=== PATIENT | male | born 1980 | race Hispanic/Latino ===

== ENCOUNTER → 2019-04-29 08:42 | Outpatient (CLI) | payer OTHER, SELFPAY ==
--- NOTE | 2019-04-29 | DI.MRI.S_ITS ---
PROCEDURE: MR HEAD/BRAIN WO/W CON INDICATIONS: Benign neoplasm of cerebral meninges TECHNIQUE: Noncontrast axial T1 spin echo, axial T2 fast spin echo, sagittal and axial FLAIR, coronal T2 fast spin echo, axial gradient echo, axial diffusion and ADC through the brain. After the administration of contrast, axial and coronal 3D VIBE or T1 spin echo with fat saturation through the brain. COMPARISON: No prior studies are available for comparison at the time of this dictation. FINDINGS: Image quality: Excellent. CSF Spaces: Basal cisterns are patent. No extra-axial fluid collections. Ventricles are normal in size and shape. Brain: No midline shift. No intracranial bleeds or masses. No abnormal intracranial enhancement. The brainstem appears normal. Diffusion-weighted images demonstrate no acute ischemic insults. No chronic ischemic insults. Normal intravascular flow voids are present. Skull and face: Craniotomy changes are seen in the right. Calvarial marrow is normal in signal. Orbits appear normal. Sinuses: Sinuses and mastoids appear clear. IMPRESSION: No masses or abnormal enhancement can be seen. Prior right craniotomy changes. Dictated by: Primitivo Milian M.D. on 04/29/2019 at 9:24 Approved by: Primitivo Milian M.D. on 04/29/2019 at 9:26
== END ==
DX: D32.0 Benign neoplasm of cerebral meninges (principal)
CPT/HCPCS: 70553

== ENCOUNTER 2020-03-18 14:30 | Outpatient (RCR) | payer OTHER, SELFPAY ==
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
== END 2020-09-25 08:48 | disposition home or self-care (01) ==
LOC: SP 14:30
DX: S06.9X0A Unspecified intracranial injury without loss of consciousness, initial encounter (principal)
CPT/HCPCS: 92507; 92523

== ENCOUNTER 2021-07-13 14:30 | Outpatient (RCR) | payer OTHER, SELFPAY ==
--- NOTE | 2021-03-17 17:31 | ST.OPIE ---
Visit Care Team Role Provider Type Yifan Knight Attending Provider Non-Staff Primary Care Provider Referring Provider Specialty: Medical Address: [address] [place] [address], [id number] Email: Speech-Language Pathology Initial Evaluation GENERAL SERVICE TECHNICIAN Adult Cognitive Linguistic Eval Start: 03/17/21 12:51 Freq: Status: Active Protocol: Document 03/17/21 12:52 EUGENIA (Rec: 03/17/21 13:26 EUGENIA [email or web address]) Adult Cognitive Linguistic Evaluation Session Time Visit Start Time 12:30 Visit Stop Time 13:25 Total Visit Minutes 55 Visit Information Visit Number Initial Evaluation Plan of Care Dates 03/17/21 - 06/17/21 Insurance Information Referral Referring Provider Dr. Yifan Knight Reason for Referral Unspecified intracranial injury without loss of consciousness Setting Assessment Location Outpatient Care Visit Type Note Type Initial evaluation Next Note Type Next Note Type Treatment Note Patient Information Identification Type Name,ID Card Medical History The pt is a 40-yr-old male familiar to this GENERAL SERVICE TECHNICIAN from previous outpatient speech therapy (07/30 - 03/30) targeting memory, attention, and problem solving skills. 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 He reported that new responsibilities are more demanding, both in regard to workload and time constraints, and that short term and working memory dificits interfere with his ability to complete tasks effectively and timely. 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 Assessment Oral Motor Examination Completed No Informal Assessment Receptive Language Normal Yes Expressive Language Normal Yes Pragmatic Language Normal Yes Speech Normal Yes Cognition Normal No: Mild Impairment Cognitive Impairment(s) Attention,Short-term memory Formal Assessment Standardized Test/Screener Type Cognitive Linguistic Quick Test (CLQT) Administration Complete Results Pt scored WNL on all scales of Attention, Memory, Executive Functions, Language, and Visualspatial Skills, as well as Clock Drawing task. Pt completed all tasks in a timely manner with exception of generative naming of words beginning with letter M (6 words in 60 sec) and design generation (7 of 13 possible designs; 2 errors made, 1 self -corrected). In story task, the pt recalled 11/18 details and answered 5/6 related questions (memory recognition) . Findings/Results Language Function Within normal limits Cognitive Function Mildly impaired Findings The pt presents with mild cognitive communication deficits primarily in areas of attention, executive function , and working/short-term memory which impact his ability to manage high level responsibilities in his job. Expressive and receptive language are WNL, as are pragmatic language skills. The pt is building his career and family. He has been promoted to a work position with significantly higher demands, which exceed the ability to use tools and strategies accomplished in previous therapy. Skilled intervention is medically necessary to meet these demands to maintain employment and family life. Cognitive Communication Deficits Self-awareness of Cognitive- Predictive awareness (able to Communication Deficits predict problem; impact of impairments) Impact on Functioning Activity Limits/Particip.Rest. Mild: General Tasks and Demands Interpersonal Interactions Mod: Employment Prognosis Prognosis Good Based on Cognitive status,Family support,Duration of symptoms/ severity,Time since onset, Other (comment) Comment Progress made in previous therapy course. Plan of Care Speech-Language Treatment Yes Frequency 1x/wk Duration 12 wks Patient/Caregiver Education Described results of evaluation,Patient expressed understanding of evaluation, Patient expressed agreement with goals and treatment plans Short Term Goals 1. With GENERAL SERVICE TECHNICIAN collaboration as needed, the pt will develop external memory tools to increase his ability to recall functional information necessary to fulfill work responsibilities. 2. With GENERAL SERVICE TECHNICIAN collaboration as needed, the pt will develop tools/strategies to track information related to work projects in order to improve executive functions necessary to fulfill work responsibilities. 3. The pt will complete alternating and dual attention tasks with 80% accuracy to improve ability to attend to multiple stimuli to fulfill work and personal/family responsibilities. Snf Goals 1. The pt will use external memory tools independently in 80% of opportunities to meet work and personal/home responsibilities and improve quality of life. 2. The pt will use executive function tools/strategies in 80% of opportunities to meet work and personal/home responsibilities and improve quality of life. 3. The pt will demonstrate attention skills WFL to of opportunities to meet work and personal/home responsibilities and improve quality of life.
--- NOTE | 2021-03-30 16:34 | ST.OPTN ---
Visit Care Team Role Provider Type Yifan Knight Attending Provider Non-Staff Primary Care Provider Referring Provider Address: [address] [place] [address], [id number] WASHER ENGINEER HELPER Treatment Note WASHER ENGINEER HELPER Clinical Instructor Line Start: 03/30/21 12:26 Freq: Status: Active Protocol: Document 03/30/21 12:26 EUGENIA (Rec: 03/30/21 12:26 EUGENIA [email or web address]) Clinical Instructor Signature Clinical Instructor Clinical Instructor Yes WASHER ENGINEER HELPER Treatment Note Start: 03/17/21 12:51 Freq: Status: Active Protocol: Document 03/30/21 09:36 EB (Rec: 03/30/21 09:38 EB [email or web address]) Speech Pathology Treatment Note Session Time Visit Start Time 08:30 Visit Stop Time 09:20 Total Visit Minutes 50 Visit Information Visit Number 1 Plan of Care Dates 03/17/21 - 06/17/21 Insurance Information Setting Treatment Setting Outpatient Care Visit Type Note Type Treatment Note Next Note Type Next Note Type Treatment Note General Information General Information The pt is a 40-yr-old male familiar to this WASHER ENGINEER HELPER from previous outpatient speech therapy (07/30 - 03/30) targeting memory, attention, and problem solving skills. He made excellent progress using memory and organizational strategies to complete work and home responsibilities. 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 The pt presents with mild cognitive communication deficits primarily in areas of attention, executive function, and working/short-term memory which impact his ability to manage high level responsibilities in his job. Subjective Identification Type Name Others Present Student Observations/Patient Presentation Pt arrived on time and unaccompanied. Session conducted and note written by student WASHER ENGINEER HELPER Cristin Morton. Chief Complaint(s) Language,Cognitive Patient Knowledge/Awareness of WASHER ENGINEER HELPER Role Excellent in Treatment Parent/Caretake Knowledge/Awareness of Excellent WASHER ENGINEER HELPER Role in Treatment Patient/Caregiver Compliance with Home Excellent Exercise Program Objective Short Term Goals 1. With WASHER ENGINEER HELPER collaboration as needed, the pt will develop external memory tools to increase his ability to recall functional information necessary to fulfill work responsibilities. 2. With WASHER ENGINEER HELPER collaboration as needed, the pt will develop tools/strategies to track information related to work projects in order to improve executive functions necessary to fulfill work responsibilities. 3. The pt will complete alternating and dual attention tasks with 80% accuracy to improve ability to attend to multiple stimuli to fulfill work and personal/family responsibilities. Referral And Information Aide Goals 1. The pt will use external memory tools independently in 80% of opportunities to meet work and personal/home responsibilities and improve quality of life. 2. The pt will use executive function tools/strategies in 80% of opportunities to meet work and personal/home responsibilities and improve quality of life. 3. The pt will demonstrate attention skills WFL to of opportunities to meet work and personal/home responsibilities and improve quality of life. Treatment Activities Pt brought notebook containing list of duties and collaborated with WASHER ENGINEER HELPER to determine what strategies/ exercises will be helpful in improving memory and attention . Strategies discussed include : intentional attention (e.g. repeating instructions out-loud ), delegating tasks at work, streamline communication, and utilizing memory strategies such as grouping information and mnemonics. Provided education and skilled feedback RE the different types of memory/attention and what strategies are beneficial for improving these functions. Pt expressed understanding and stated that he will begin implementing discussed strategies (creating note taking template, using different colored pen to prioritize tasks, etc.) and will report next week what is/ isn't beneficial. Next session will begin cognitive- linguistic exercises to directly target improving short-term memory and attention. Assessment Patient Response to Treatment Excellent Rehab Potential Excellent Impairments Identified Attention,Memory - Short Term, Memory - Working Assessment of Improvement Pt was responsive to all education and training today, verbalizing understanding and writing down HEP to implement over the next week. Reviewed with Patient Goals,Home Exercise Program Patient/Caregiver Understanding Excellent Plan Amount of Therapy Recommended 3 Months Frequency of Treatment Once a Week Length of Session 45 Minutes Therapeutic Contents Client Education,Cognitive- Linguistic Training,Home Exercise Program Provided Patient/Caregiver Instruction Home Exercise Program,Plan of Care,Questions/Concerns Therapy Recommendations Continue with Current Program
--- NOTE | 2021-04-07 16:35 | ST.OPTN ---
Visit Care Team Role Provider Type Yifan Knight Attending Provider Non-Staff Primary Care Provider Referring Provider Address: [address] [place] [address], [id number] SENIOR PROPERTY ACCOUNTANT Treatment Note SENIOR PROPERTY ACCOUNTANT Clinical Instructor Line Start: 03/30/21 12:26 Freq: Status: Active Protocol: Document 04/07/21 15:54 EUGENIA (Rec: 04/07/21 15:54 EUGENIA [email or web address]) Clinical Instructor Signature Clinical Instructor Clinical Instructor Yes SENIOR PROPERTY ACCOUNTANT Treatment Note Start: 03/17/21 12:51 Freq: Status: Active Protocol: Document 04/06/21 09:40 EB (Rec: 04/06/21 09:54 EB [email or web address]) Speech Pathology Treatment Note Session Time Visit Start Time 08:30 Visit Stop Time 09:20 Total Visit Minutes 50 Visit Information Visit Number 2 Plan of Care Dates 03/17/21 - 06/17/21 Insurance Information Setting Treatment Setting Outpatient Care Visit Type Note Type Treatment Note Next Note Type Next Note Type Treatment Note General Information General Information The pt is a 40-yr-old male familiar to this SENIOR PROPERTY ACCOUNTANT from previous outpatient speech therapy (07/30 - 03/30) targeting memory, attention, and problem solving skills. He made excellent progress using memory and organizational strategies to complete work and home responsibilities. 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 The pt presents with mild cognitive communication deficits primarily in areas of attention, executive function, and working/short-term memory which impact his ability to manage high level responsibilities in his job. Subjective Identification Type Name Others Present Student Observations/Patient Presentation Pt arrived on time and unaccompanied. Session conducted and note written by student SENIOR PROPERTY ACCOUNTANT Cristin Morton. Chief Complaint(s) Language,Cognitive Patient Knowledge/Awareness of SENIOR PROPERTY ACCOUNTANT Role Excellent in Treatment Parent/Caretake Knowledge/Awareness of Excellent SENIOR PROPERTY ACCOUNTANT Role in Treatment Patient/Caregiver Compliance with Home Excellent Exercise Program Objective Short Term Goals 1. With SENIOR PROPERTY ACCOUNTANT collaboration as needed, the pt will develop external memory tools to increase his ability to recall functional information necessary to fulfill work responsibilities. 2. With SENIOR PROPERTY ACCOUNTANT collaboration as needed, the pt will develop tools/strategies to track information related to work projects in order to improve executive functions necessary to fulfill work responsibilities. 3. The pt will complete alternating and dual attention tasks with 80% accuracy to improve ability to attend to multiple stimuli to fulfill work and personal/family responsibilities. Leadite Heater Goals 1. The pt will use external memory tools independently in 80% of opportunities to meet work and personal/home responsibilities and improve quality of life. 2. The pt will use executive function tools/strategies in 80% of opportunities to meet work and personal/home responsibilities and improve quality of life. 3. The pt will demonstrate attention skills WFL to of opportunities to meet work and personal/home responsibilities and improve quality of life. Treatment Activities Pt reported that he has implemented several external memory tools/strategies that were discussed last week ( delegating tasks, streamlining communication, using a note template) and stated that these strategies have been very helpful in order for him to decrease stress and fulfill work responsibilities this past week. Provided skilled feedback RE options for further simplifying and implementing strategies. Pt was receptive to feedback and agreed to continue with HEP. Provided education RE memory strategies and targeted memorizing and recalling 5 objects; with strategies (self tactile cue, creating a story with the objects, repeating it out loud) pt recalled objects 85% accuracy. Next session, pt will bring in task list from work to specifically target using internal memory strategies with functional tasks. Assessment Patient Response to Treatment Excellent Rehab Potential Excellent Impairments Identified Attention,Memory - Short Term, Memory - Working Assessment of Improvement Pt demonstrated excellent awareness and insight by stating it is up to him to utilize available resources and set boundaries at work. Reviewed with Patient Goals,Home Exercise Program Patient/Caregiver Understanding Excellent Plan Amount of Therapy Recommended 3 Months Frequency of Treatment Once a Week Length of Session 45 Minutes Therapeutic Contents Client Education,Cognitive- Linguistic Training,Home Exercise Program Provided Patient/Caregiver Instruction Home Exercise Program,Plan of Care,Questions/Concerns Therapy Recommendations Continue with Current Program
--- NOTE | 2021-04-13 17:05 | ST.OPTN ---
Visit Care Team Role Provider Type Yifan Knight Attending Provider Non-Staff Primary Care Provider Referring Provider Address: [address] [place] [address], [id number] SAFETY INTERN Treatment Note SAFETY INTERN Clinical Instructor Line Start: 03/30/21 12:26 Freq: Status: Active Protocol: Document 04/13/21 17:00 EUGENIA (Rec: 04/13/21 17:00 EUGENIA [email or web address]) Clinical Instructor Signature Clinical Instructor Clinical Instructor Yes SAFETY INTERN Treatment Note Start: 03/17/21 12:51 Freq: Status: Active Protocol: Document 04/13/21 16:28 EB (Rec: 04/13/21 16:42 EB [id number]) Speech Pathology Treatment Note Session Time Visit Start Time 14:30 Visit Stop Time 15:15 Total Visit Minutes 45 Visit Information Visit Number 3 Plan of Care Dates 03/17/21 - 06/17/21 Insurance Information Setting Treatment Setting Outpatient Care Visit Type Note Type Treatment Note Next Note Type Next Note Type Treatment Note General Information General Information The pt is a 40-yr-old male familiar to this SAFETY INTERN from previous outpatient speech therapy (07/30 - 03/30) targeting memory, attention, and problem solving skills. He made excellent progress using memory and organizational strategies to complete work and home responsibilities. 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 The pt presents with mild cognitive communication deficits primarily in areas of attention, executive function, and working/short-term memory which impact his ability to manage high level responsibilities in his job. Subjective Identification Type Name Others Present Additional Therapist Observations/Patient Presentation Pt arrived on time and unaccompanied without his task list. Session conducted and note written by student SAFETY INTERN Cristin Morton. Chief Complaint(s) Language,Cognitive Patient Knowledge/Awareness of SAFETY INTERN Role Excellent in Treatment Parent/Caretake Knowledge/Awareness of Excellent SAFETY INTERN Role in Treatment Patient/Caregiver Compliance with Home Excellent Exercise Program Objective Short Term Goals 1. With SAFETY INTERN collaboration as needed, the pt will develop external memory tools to increase his ability to recall functional information necessary to fulfill work responsibilities. 2. With SAFETY INTERN collaboration as needed, the pt will develop tools/strategies to track information related to work projects in order to improve executive functions necessary to fulfill work responsibilities. 3. The pt will complete alternating and dual attention tasks with 80% accuracy to improve ability to attend to multiple stimuli to fulfill work and personal/family responsibilities. Animal Trainer Supervisor Goals 1. The pt will use external memory tools independently in 80% of opportunities to meet work and personal/home responsibilities and improve quality of life. 2. The pt will use executive function tools/strategies in 80% of opportunities to meet work and personal/home responsibilities and improve quality of life. 3. The pt will demonstrate attention skills WFL to of opportunities to meet work and personal/home responsibilities and improve quality of life. Treatment Activities Pt reported that he has continued to have success implementing external memory tools/strategies. Targeted recalling 5 different related objects: at the beginning of session, pt was averaging 80% accuracy with min prompts. After given skilled feedback, prompts were gradually faded and at the end of the session pt independently recalled 5 different objects from 5 different lists (total of 25 words). Assessment Patient Response to Treatment Excellent Rehab Potential Excellent Impairments Identified Attention,Memory - Short Term, Memory - Working Assessment of Improvement Pt was responsive to education and training. Pt gradually improved as the session progressed, which indicates that targeted strategies are helpful to the pt. Reviewed with Patient Goals,Home Exercise Program Patient/Caregiver Understanding Excellent Plan Amount of Therapy Recommended 3 Months Frequency of Treatment Once a Week Length of Session 45 Minutes Therapeutic Contents Client Education,Cognitive- Linguistic Training,Home Exercise Program Provided Patient/Caregiver Instruction Home Exercise Program,Plan of Care,Questions/Concerns Therapy Recommendations Continue with Current Program
--- NOTE | 2021-04-20 16:35 | ST.OPTN ---
Visit Care Team Role Provider Type Yifan Knight Attending Provider Non-Staff Primary Care Provider Referring Provider Address: [address] [place] [address], [id number] PLASTERER FOREMAN Treatment Note PLASTERER FOREMAN Clinical Instructor Line Start: 03/30/21 12:26 Freq: Status: Active Protocol: Document 04/13/21 17:00 EUGENIA (Rec: 04/13/21 17:00 EUGENIA [email or web address]) Clinical Instructor Signature Clinical Instructor Clinical Instructor Yes PLASTERER FOREMAN Treatment Note Start: 03/17/21 12:51 Freq: Status: Active Protocol: Document 04/20/21 15:23 EUGENIA (Rec: 04/20/21 15:29 EUGENIA [email or web address]) Speech Pathology Treatment Note Session Time Visit Start Time 14:30 Visit Stop Time 15:15 Total Visit Minutes 45 Visit Information Visit Number 4 Plan of Care Dates 03/17/21 - 06/17/21 Insurance Information Setting Treatment Setting Outpatient Care Visit Type Note Type Treatment Note Next Note Type Next Note Type Treatment Note General Information General Information The pt is a 40-yr-old male familiar to this PLASTERER FOREMAN from previous outpatient speech therapy (07/30 - 03/30) targeting memory, attention, and problem solving skills. He made excellent progress using memory and organizational strategies to complete work and home responsibilities. 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 The pt presents with mild cognitive communication deficits primarily in areas of attention, executive function, and working/short-term memory which impact his ability to manage high level responsibilities in his job. Subjective Identification Type Name Others Present Additional Therapist Observations/Patient Presentation Pt arrived on time. No new complaints. Reported he has been able to delegate more work to others, which has allowed him more time and energy to complete his own mandatory work, also has reduced his stress. With this, the pt was also able to recall grocery items without dependence on list. Chief Complaint(s) Language,Cognitive Patient Knowledge/Awareness of PLASTERER FOREMAN Role Excellent in Treatment Parent/Caretake Knowledge/Awareness of Excellent PLASTERER FOREMAN Role in Treatment Patient/Caregiver Compliance with Home Excellent Exercise Program Objective Short Term Goals 1. With PLASTERER FOREMAN collaboration as needed, the pt will develop external memory tools to increase his ability to recall functional information necessary to fulfill work responsibilities. 2. With PLASTERER FOREMAN collaboration as needed, the pt will develop tools/strategies to track information related to work projects in order to improve executive functions necessary to fulfill work responsibilities. 3. The pt will complete alternating and dual attention tasks with 80% accuracy to improve ability to attend to multiple stimuli to fulfill work and personal/family responsibilities. Correction Goals 1. The pt will use external memory tools independently in 80% of opportunities to meet work and personal/home responsibilities and improve quality of life. 2. The pt will use executive function tools/strategies in 80% of opportunities to meet work and personal/home responsibilities and improve quality of life. 3. The pt will demonstrate attention skills WFL to of opportunities to meet work and personal/home responsibilities and improve quality of life. Treatment Activities Skilled feedback provided to pt RE potential effects of stress on memory, including reduced stress promoting better recall. Pt independently recalled 25/ 30 items train at last week's session; additional 5 items recalled with verbal prompts. Continued training pt in internal memory strategies including acronyms, chaining, visualization, associations and repetition. Given lists of 5 varied words and using strategies, the pt recalled 15 /15 items across 3 lists independently after a 10-min delay during which he performed mental flexibility task of alphbetizing Fo4 words (50%, then 100% using added written support across 2 trials). Assessment Patient Response to Treatment Excellent Rehab Potential Excellent Impairments Identified Attention,Memory - Short Term, Memory - Working Assessment of Improvement Pt was responsive to education and training. Excellent recall of word lists from last week. He is demonstrating good ability to make associations and use strategies in both therapeutic and functional tasks. Reviewed with Patient Goals,Progress Being Made,Home Exercise Program Patient/Caregiver Understanding Excellent Plan Amount of Therapy Recommended 3 Months Frequency of Treatment Once a Week Length of Session 45 Minutes Therapeutic Contents Client Education,Cognitive- Linguistic Training,Home Exercise Program Provided Patient/Caregiver Instruction Home Exercise Program,Plan of Care,Questions/Concerns Therapy Recommendations Continue with Current Program
--- NOTE | 2021-05-05 17:40 | ST.OPTN ---
Visit Care Team Role Provider Type Yifan Knight Attending Provider Non-Staff Primary Care Provider Referring Provider Address: [address] [place] [address], [id number] COLOR CHECKER ROVING OR YARN Treatment Note COLOR CHECKER ROVING OR YARN Clinical Instructor Line Start: 03/30/21 12:26 Freq: Status: Active Protocol: Document 04/13/21 17:00 EUGENIA (Rec: 04/13/21 17:00 EUGENIA [email or web address]) Clinical Instructor Signature Clinical Instructor Clinical Instructor Yes COLOR CHECKER ROVING OR YARN Treatment Note Start: 03/17/21 12:51 Freq: Status: Active Protocol: Document 05/04/21 18:15 EUGENIA (Rec: 05/04/21 18:15 EUGENIA [email or web address]) Speech Pathology Treatment Note Session Time Visit Start Time 14:30 Visit Stop Time 15:15 Total Visit Minutes 45 Visit Information Visit Number 5 Plan of Care Dates 03/17/21 - 06/17/21 Insurance Information Setting Treatment Setting Outpatient Care Visit Type Note Type Treatment Note Next Note Type Next Note Type Treatment Note General Information General Information The pt is a 40-yr-old male familiar to this COLOR CHECKER ROVING OR YARN from previous outpatient speech therapy (07/30 - 03/30) targeting memory, attention, and problem solving skills. He made excellent progress using memory and organizational strategies to complete work and home responsibilities. 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 The pt presents with mild cognitive communication deficits primarily in areas of attention, executive function, and working/short-term memory which impact his ability to manage high level responsibilities in his job. Subjective Identification Type Name Others Present Additional Therapist Observations/Patient Presentation Pt arrived on time. No new complaints. Reported he has been able to delegate more work to others, which has allowed him more time and energy to complete his own mandatory work, also has reduced his stress. With this, the pt was also able to recall grocery items without dependence on list. Chief Complaint(s) Language,Cognitive Patient Knowledge/Awareness of COLOR CHECKER ROVING OR YARN Role Excellent in Treatment Parent/Caretake Knowledge/Awareness of Excellent COLOR CHECKER ROVING OR YARN Role in Treatment Patient/Caregiver Compliance with Home Excellent Exercise Program Objective Short Term Goals 1. With COLOR CHECKER ROVING OR YARN collaboration as needed, the pt will develop external memory tools to increase his ability to recall functional information necessary to fulfill work responsibilities. 2. With COLOR CHECKER ROVING OR YARN collaboration as needed, the pt will develop tools/strategies to track information related to work projects in order to improve executive functions necessary to fulfill work responsibilities. 3. The pt will complete alternating and dual attention tasks with 80% accuracy to improve ability to attend to multiple stimuli to fulfill work and personal/family responsibilities. Halfway Goals 1. The pt will use external memory tools independently in 80% of opportunities to meet work and personal/home responsibilities and improve quality of life. 2. The pt will use executive function tools/strategies in 80% of opportunities to meet work and personal/home responsibilities and improve quality of life. 3. The pt will demonstrate attention skills WFL to of opportunities to meet work and personal/home responsibilities and improve quality of life. Treatment Activities Pt completed selective and divided attention tasks using conversation task In the [employer] sydnee with and without dual physical task. Selective attn, 67% acc; skilled feedback provided and strategies developed. Acc remained at 67% with use of strategies. Divided att: 75% acc. Assessment Patient Response to Treatment Excellent Rehab Potential Excellent Impairments Identified Attention,Memory - Short Term, Memory - Working Progress Towards Goals Excellent Progress,Good Progress Assessment of Overall Progress Improving Assessment of Improvement Pt is making excellent progress toward goals. Demonstrated stimulability to selective and divided attn tasks. Reviewed with Patient Goals,Progress Being Made,Home Exercise Program Patient/Caregiver Understanding Excellent Plan Amount of Therapy Recommended 3 Months Frequency of Treatment Once a Week Length of Session 45 Minutes Therapeutic Contents Client Education,Cognitive- Linguistic Training,Home Exercise Program Provided Patient/Caregiver Instruction Home Exercise Program,Plan of Care,Questions/Concerns Therapy Recommendations Continue with Current Program
--- NOTE | 2021-05-18 16:25 | ST.OPTN ---
Visit Care Team Role Provider Type Yifan Knight Attending Provider Non-Staff Primary Care Provider Referring Provider Address: [address] [place] [address], [id number] INNER LAYER SCRUBBER TENDER Treatment Note INNER LAYER SCRUBBER TENDER Clinical Instructor Line Start: 03/30/21 12:26 Freq: Status: Active Protocol: Document 04/13/21 17:00 EUGENIA (Rec: 04/13/21 17:00 EUGENIA [email or web address]) Clinical Instructor Signature Clinical Instructor Clinical Instructor Yes INNER LAYER SCRUBBER TENDER Treatment Note Start: 03/17/21 12:51 Freq: Status: Active Protocol: Document 05/18/21 15:24 EUGNEIA (Rec: 05/18/21 15:33 EUGENIA [email or web address]) Speech Pathology Treatment Note Session Time Visit Start Time 14:30 Visit Stop Time 15:15 Total Visit Minutes 45 Visit Information Visit Number 6 Plan of Care Dates 03/17/21 - 06/17/21 Insurance Information Setting Treatment Setting Outpatient Care Visit Type Note Type Treatment Note Next Note Type Next Note Type Treatment Note General Information General Information The pt is a 40-yr-old male familiar to this INNER LAYER SCRUBBER TENDER from previous outpatient speech therapy (07/30 - 03/30) targeting memory, attention, and problem solving skills. He made excellent progress using memory and organizational strategies to complete work and home responsibilities. 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 The pt presents with mild cognitive communication deficits primarily in areas of attention, executive function, and working/short-term memory which impact his ability to manage high level responsibilities in his job. Subjective Identification Type Name Others Present Additional Therapist Observations/Patient Presentation Pt arrived on time. No new complaints. Memory strategies have been effective with recalling lists. Pt reported losing a few objects recently when he did not adhere to the routine of putting objects in their designated places. When following routine, he is not misplacing things. Pt has an inspection happening next week with his job. Reported use of checklist/flow sheet has been helpful in preparing and he will use it during the inspection. Chief Complaint(s) Language,Cognitive Patient Knowledge/Awareness of INNER LAYER SCRUBBER TENDER Role Excellent in Treatment Parent/Caretake Knowledge/Awareness of Excellent INNER LAYER SCRUBBER TENDER Role in Treatment Patient/Caregiver Compliance with Home Excellent Exercise Program Objective Short Term Goals 1. With INNER LAYER SCRUBBER TENDER collaboration as needed, the pt will develop external memory tools to increase his ability to recall functional information necessary to fulfill work responsibilities. 2. With INNER LAYER SCRUBBER TENDER collaboration as needed, the pt will develop tools/strategies to track information related to work projects in order to improve executive functions necessary to fulfill work responsibilities. 3. The pt will complete alternating and dual attention tasks with 80% accuracy to improve ability to attend to multiple stimuli to fulfill work and personal/family responsibilities. Senior Behavioral Scientist Goals 1. The pt will use external memory tools independently in 80% of opportunities to meet work and personal/home responsibilities and improve quality of life. 2. The pt will use executive function tools/strategies in 80% of opportunities to meet work and personal/home responsibilities and improve quality of life. 3. The pt will demonstrate attention skills WFL to of opportunities to meet work and personal/home responsibilities and improve quality of life. Treatment Activities Pt completed selective and divided attention tasks using conversation task In the [employer] sydnee with and with dual attention tasks, sorting cards into suits (92% listening/recall acc) and playing Solitaire (77% listening/recall acc). During task, skilled feedback was provided, and pt & INNER LAYER SCRUBBER TENDER collaborated RE strategies. The pt reported attempting to isolate salgado information and ignore extraneous comments, which he felt was helpful. Pt completed Larry's Train of Thought attn task ( initially 89% acc, improving to 92% acc) while listening to short stories (2 sentences) read aloud by clinician and answering related questions ( 80% acc). At one time, the pt independently employed a 2- handed strategy, which improved response times with Lumosity task. The clinician modified rate of speech during task, increasing as the pt scored well and decreasing when accuracy declined, the latter of which also appeared helpful in increasing pt's accuracy of both tasks. Assessment Patient Response to Treatment Excellent Rehab Potential Excellent Impairments Identified Attention,Cognitive-Linguistic Skills,Memory - Short Term, Memory - Working Progress Towards Goals Excellent Progress,Good Progress Assessment of Overall Progress Improving Assessment of Improvement Pt continues to make progress and demonstrate increased independence in developing effective strategies to improve accuracy and improving accuracy within selective and dual attention tasks. Reviewed with Patient Goals,Progress Being Made,Home Exercise Program Patient/Caregiver Understanding Excellent Plan Amount of Therapy Recommended 3 Months Frequency of Treatment Once a Week Length of Session 45 Minutes Therapeutic Contents Client Education,Cognitive- Linguistic Training,Home Exercise Program Provided Patient/Caregiver Instruction Home Exercise Program,Plan of Care,Questions/Concerns Therapy Recommendations Continue with Current Program
--- NOTE | 2021-06-01 16:54 | ST.OPTN ---
Visit Care Team Role Provider Type Yifan Knight Attending Provider Non-Staff Primary Care Provider Referring Provider Address: [address] [place] [address], [id number] ANESTHESIOLOGY MEDICAL DOCTOR Treatment Note ANESTHESIOLOGY MEDICAL DOCTOR Clinical Instructor Line Start: 03/30/21 12:26 Freq: Status: Active Protocol: Document 04/13/21 17:00 EUGENIA (Rec: 04/13/21 17:00 EUGENIA [email or web address]) Clinical Instructor Signature Clinical Instructor Clinical Instructor Yes ANESTHESIOLOGY MEDICAL DOCTOR Treatment Note Start: 03/17/21 12:51 Freq: Status: Active Protocol: Document 06/01/21 15:21 EUGENIA (Rec: 06/01/21 15:31 EUGENIA [email or web address]) Speech Pathology Treatment Note Session Time Visit Start Time 14:30 Visit Stop Time 15:15 Total Visit Minutes 45 Visit Information Visit Number 7 Plan of Care Dates 03/17/21 - 06/17/21 Insurance Information Setting Treatment Setting Outpatient Care Visit Type Note Type Treatment Note Next Note Type Next Note Type Treatment Note General Information General Information The pt is a 40-yr-old male familiar to this ANESTHESIOLOGY MEDICAL DOCTOR from previous outpatient speech therapy (07/30 - 03/30) targeting memory, attention, and problem solving skills. He made excellent progress using memory and organizational strategies to complete work and home responsibilities. 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 The pt presents with mild cognitive communication deficits primarily in areas of attention, executive function, and working/short-term memory which impact his ability to manage high level responsibilities in his job. Subjective Identification Type Name Others Present Additional Therapist Observations/Patient Presentation Pt arrived on time. No new complaints. Memory and organization strategies have been effective with work and home responsibilities. Pt was given increased responsibility at work and acknowledged for his good work. He reports that completing responsibilities require increased effort as compared to PLOF but are manageable with strategies. Chief Complaint(s) Language,Cognitive Patient Knowledge/Awareness of ANESTHESIOLOGY MEDICAL DOCTOR Role Excellent in Treatment Parent/Caretake Knowledge/Awareness of Excellent ANESTHESIOLOGY MEDICAL DOCTOR Role in Treatment Patient/Caregiver Compliance with Home Excellent Exercise Program Objective Short Term Goals 1. With ANESTHESIOLOGY MEDICAL DOCTOR collaboration as needed, the pt will develop external memory tools to increase his ability to recall functional information necessary to fulfill work responsibilities. 2. With ANESTHESIOLOGY MEDICAL DOCTOR collaboration as needed, the pt will develop tools/strategies to track information related to work projects in order to improve executive functions necessary to fulfill work responsibilities. 3. The pt will complete alternating and dual attention tasks with 80% accuracy to improve ability to attend to multiple stimuli to fulfill work and personal/family responsibilities. Registered Radiation Therapist Goals 1. The pt will use external memory tools independently in 80% of opportunities to meet work and personal/home responsibilities and improve quality of life. 2. The pt will use executive function tools/strategies in 80% of opportunities to meet work and personal/home responsibilities and improve quality of life. 3. The pt will demonstrate attention skills WFL to of opportunities to meet work and personal/home responsibilities and improve quality of life. Treatment Activities Educated and trained pt in use of Constant Contact sydnee to assist with organization and memory, allowing for creation of multiple lists/notes that can be color coordinated, reminders set, and pt can sync information with to assist in tracking tasks and responsibilities. Pt was agreeable to trialing sydnee. Will f/u at next session. Continued alternating and dual attention training using Lumosity memory Serves and Trouble Brewing tasks with and without added auditory comprehension/recall task (ANESTHESIOLOGY MEDICAL DOCTOR read sentences and asked related questions). Memory Serves task in isolation: 96% acc; with added auditory task: 78% acc. Trouble Brewing with 4 components: 10 items completed in 2 min; with 5 components: 13 items in 2 min, increasing to 18 items in 2 min with second practice. Pt self- identified and employed assistive strategies. Assessment Patient Response to Treatment Excellent Rehab Potential Excellent Impairments Identified Attention,Cognitive-Linguistic Skills,Memory - Short Term, Memory - Working Progress Towards Goals Excellent Progress,Good Progress Assessment of Overall Progress Improving Assessment of Improvement Pt continues to make progress and demonstrate increased independence in developing effective strategies to improve accuracy and improving accuracy within selective and dual attention tasks. He is able to increase levels and amounts of responsibility at work. Reviewed with Patient Goals,Progress Being Made,Home Exercise Program Patient/Caregiver Understanding Excellent Plan Amount of Therapy Recommended 2-3 Months Frequency of Treatment Once a Week Length of Session 45 Minutes Therapeutic Contents Client Education,Cognitive- Linguistic Training,Home Exercise Program Provided Patient/Caregiver Instruction Home Exercise Program,Plan of Care,Questions/Concerns Therapy Recommendations Continue with Current Program
--- NOTE | 2021-06-15 16:17 | ST.OPTN ---
Addendum entered and electronically signed by Andie Barnes 06/15/21 17:26: Plan of Care Dates: 06/15/21 - 09/15/21 Original Note: Visit Care Team Role Provider Type Yifan Knight Attending Provider Non-Staff Primary Care Provider Referring Provider Address: [address] [place] [address], [id number] SUPERINTENDENT DRILLING AND PRODUCTION Treatment Note SUPERINTENDENT DRILLING AND PRODUCTION Clinical Instructor Line Start: 03/30/21 12:26 Freq: Status: Active Protocol: Document 04/13/21 17:00 EUGENIA (Rec: 04/13/21 17:00 EUGENIA [email or web address]) Clinical Instructor Signature Clinical Instructor Clinical Instructor Yes SUPERINTENDENT DRILLING AND PRODUCTION Treatment Note Start: 03/17/21 12:51 Freq: Status: Active Protocol: Document 06/15/21 15:55 EUGENIA (Rec: 06/15/21 16:16 EUGENIA [email or web address]) Speech Pathology Treatment Note Session Time Visit Start Time 14:30 Visit Stop Time 15:15 Total Visit Minutes 45 Visit Information Visit Number 8 Plan of Care Dates 06/15/21 - 09/15/20 Insurance Information Setting Treatment Setting Outpatient Care Visit Type Note Type Progress Note Next Note Type Next Note Type Treatment Note General Information General Information The pt is a 40-yr-old male familiar to this SUPERINTENDENT DRILLING AND PRODUCTION from previous outpatient speech therapy (07/30 - 03/30) targeting memory, attention, and problem solving skills. He made excellent progress using memory and organizational strategies to complete work and home responsibilities. 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 The pt presents with mild cognitive communication deficits primarily in areas of attention, executive function, and working/short-term memory which impact his ability to manage high level responsibilities in his job. Subjective Identification Type Name Others Present Additional Therapist Observations/Patient Presentation Pt arrived on time. No new complaints. Memory and organization strategies have been effective with work and home responsibilities. He informed of additional organization and information tracking systems he has developed independently that are effective. Chief Complaint(s) Language,Cognitive Patient Knowledge/Awareness of SUPERINTENDENT DRILLING AND PRODUCTION Role Excellent in Treatment Parent/Caretake Knowledge/Awareness of Excellent SUPERINTENDENT DRILLING AND PRODUCTION Role in Treatment Patient/Caregiver Compliance with Home Excellent Exercise Program Objective Short Term Goals 1. With SUPERINTENDENT DRILLING AND PRODUCTION collaboration as needed, the pt will develop external memory tools to increase his ability to recall functional information necessary to fulfill work responsibilities. EXCELLENT PROGRESS; CONTINUE GOAL 2. With SUPERINTENDENT DRILLING AND PRODUCTION collaboration as needed, the pt will develop tools/strategies to track information related to work projects in order to improve executive functions necessary to fulfill work responsibilities. EXCELLENT PROGRESS; CONTINUE GOAL 3. The pt will complete alternating and dual attention tasks with 80% accuracy to improve ability to attend to multiple stimuli to fulfill work and personal/family responsibilities. MAKING PROGRESS; CONTINUE GOAL Liquor Maker Goals 1. The pt will use external memory tools independently in 80% of opportunities to meet work and personal/home responsibilities and improve quality of life. GOAL MET. 2. The pt will use executive function tools/strategies in 80% of opportunities to meet work and personal/home responsibilities and improve quality of life. EXCELLENT PROGRESS; CONTINUE GOAL 3. The pt will demonstrate attention skills WFL to of opportunities to meet work and personal/home responsibilities and improve quality of life. MAKING GOOD PROGRESS; CONTINUE GOAL Treatment Activities Consulted with pt on use of [employer] sydnee for tracking tasks. Pt is experiencing technical difficulties with his [employer] account and reported intention to work with the sydnee when this is resolved. Continued training was provided using the Clinician's sydnee for demonstration, including ways of sharing tasks and lists with other users. The pt was particularly interested in being able to share information with his to track and complete household and family responsibilities. Continued training in divided attention and memory using problem solving tasks via Constant Therapy in isolation (60%) and in tandem with recall of information presented by the Clinician (97 % acc recalling 1- and 2- component information; 50% acc recalling 3-step instructions and short paragraph information). Skilled feedback was provided RE impacts of increased cognitive load, including recalling information within and outside of a known context. Pt verbalized agreement. Assessment Patient Response to Treatment Excellent Rehab Potential Excellent Impairments Identified Attention,Cognitive-Linguistic Skills,Memory - Short Term, Memory - Working Progress Towards Goals Excellent Progress,Good Progress Assessment of Overall Progress Improving Assessment of Improvement Over the course of treatment, the pt has been highly participatory in development of external organization and memory tools that have helped him more efficiently and effectively accomplish work and home responsibilities. Recently, he has independently developed additional tools and systems at work, demonstrating carryover of treatment targets and increased independence. He has been given increased responsibility at work and acknowledged for his good work , demonstrating the effectiveness of these tools. The pt reports that completing responsibilities continue to require increased effort, as compared to PLOF, but is more manageable with strategies. He continues to struggle with alternating and divided attention and short-term and working memory, resulting in a reliance on external tools for support. Continued skilled intervention is medically necessary to improve internal memory and attention skills to ease the cognitive burden of work and home responsibilities and reduce reliance on external tools. Reviewed with Patient Goals,Progress Being Made,Home Exercise Program Patient/Caregiver Understanding Excellent Plan Amount of Therapy Recommended 2-3 Months Frequency of Treatment Once a Week Length of Session 45 Minutes Therapeutic Contents Client Education,Cognitive- Linguistic Training,Home Exercise Program Provided Patient/Caregiver Instruction Home Exercise Program,Plan of Care,Questions/Concerns Therapy Recommendations Continue with Current Program
--- NOTE | 2021-07-13 15:42 | ST.OPTN ---
Visit Care Team Role Provider Type Yifan Knight Attending Provider Non-Staff Primary Care Provider Referring Provider Address: [address] [place] [address], [id number] MORTGAGE BRANCH MANAGER Treatment Note MORTGAGE BRANCH MANAGER Clinical Instructor Line Start: 03/30/21 12:26 Freq: Status: Active Protocol: Document 04/13/21 17:00 EUGENIA (Rec: 04/13/21 17:00 EUGENIA [email or web address]) Clinical Instructor Signature Clinical Instructor Clinical Instructor Yes MORTGAGE BRANCH MANAGER Treatment Note Start: 03/17/21 12:51 Freq: Status: Active Protocol: Document 07/13/21 15:24 EUGENIA (Rec: 07/13/21 15:42 EUGENIA [email or web address]) Speech Pathology Treatment Note Session Time Visit Start Time 14:30 Visit Stop Time 15:20 Total Visit Minutes 50 Visit Information Visit Number 9 Plan of Care Dates 06/15/21 - 09/15/20 Insurance Information Setting Treatment Setting Outpatient Care Visit Type Note Type Treatment Note Next Note Type Next Note Type Treatment Note General Information General Information The pt is a 40-yr-old male familiar to this MORTGAGE BRANCH MANAGER from previous outpatient speech therapy (07/30 - 03/30) targeting memory, attention, and problem solving skills. He made excellent progress using memory and organizational strategies to complete work and home responsibilities. 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 The pt presents with mild cognitive communication deficits primarily in areas of attention, executive function, and working/short-term memory which impact his ability to manage high level responsibilities in his job. Subjective Identification Type Name Others Present Additional Therapist Observations/Patient Presentation Pt arrived on time. No new complaints. External memory and organization strategies have been effective with work and home responsibilities. Pt reported he gets thrown off when events disrupt his routine and continues with difficulty attending to more than one thing at a time, which concerns him that he will miss important information at work. Pt's insurance authorization is coming to an end. Pt agreed to inform MD and request renewed authorization to continue therapy. Chief Complaint(s) Language,Cognitive Patient Knowledge/Awareness of MORTGAGE BRANCH MANAGER Role Excellent in Treatment Parent/Caretake Knowledge/Awareness of Excellent MORTGAGE BRANCH MANAGER Role in Treatment Patient/Caregiver Compliance with Home Excellent Exercise Program Objective Short Term Goals 1. With MORTGAGE BRANCH MANAGER collaboration as needed, the pt will develop external memory tools to increase his ability to recall functional information necessary to fulfill work responsibilities. EXCELLENT PROGRESS; CONTINUE GOAL 2. With MORTGAGE BRANCH MANAGER collaboration as needed, the pt will develop tools/strategies to track information related to work projects in order to improve executive functions necessary to fulfill work responsibilities. EXCELLENT PROGRESS; CONTINUE GOAL 3. The pt will complete alternating and dual attention tasks with 80% accuracy to improve ability to attend to multiple stimuli to fulfill work and personal/family responsibilities. MAKING PROGRESS; CONTINUE GOAL Can Filling Room Sweeper Goals 1. The pt will use external memory tools independently in 80% of opportunities to meet work and personal/home responsibilities and improve quality of life. GOAL MET. 2. The pt will use executive function tools/strategies in 80% of opportunities to meet work and personal/home responsibilities and improve quality of life. EXCELLENT PROGRESS; CONTINUE GOAL 3. The pt will demonstrate attention skills WFL to of opportunities to meet work and personal/home responsibilities and improve quality of life. MAKING GOOD PROGRESS; CONTINUE GOAL Treatment Activities Today's session focused on developing HEP targeting internal memory and attention skills to decrease the pt's reliance on external tools and to manage non-routine events more effectively and with greater confidence. Education and recommendations were provided to pt RE important components of HEP as well as neuroplasticity, including repetition, intensity, and salience. Collaborated with pt RE hobbies and daily activities. Pt reported enjoyment of building models. MORTGAGE BRANCH MANAGER made recommendations related to challenging memory (e.g., read instructions, then carry out from memory, either immediately or after time/ distractions) and selective and divided attention (e.g., while building model, have conversation with , listen to a podcast of importance to the pt, alternate between building model and putting together a toy for his son, etc.). Also discussed opportunities to challenge memory and attention in social and community settings (e.g., tracking topics of multiple conversations at one, recalling grocery list from memory, etc.). The pt identified several such tasks that he would enjoy doing and find challenging at work, home and in the community, demonstrating understanding. Pt will be seen again in 2 wks at which time he will report back the HEP tasks he has completed as well as their frequency. Assessment Patient Response to Treatment Excellent Rehab Potential Excellent Impairments Identified Attention,Cognitive-Linguistic Skills,Memory - Short Term, Memory - Working Progress Towards Goals Excellent Progress,Good Progress Assessment of Overall Progress Improving Assessment of Improvement The pt has made excellent progress with external tools and strategies, which he uses consistently and allow him to function very well with work and home routines. To increase progress with internal skills , a regular home exercise program is critical. The pt was highly participatory in developing HEP, identifying tasks that are salient to him as well as challenging in a variety of settings with varying levels of structure. He expressed enthusiasm, and, based on his compliance with external tools and strategies, it is anticipated he will do well with his HEP and, therefore, progress with internal skills with ongoing skilled intervention. Reviewed with Patient Goals,Progress Being Made,Home Exercise Program Patient/Caregiver Understanding Excellent Plan Amount of Therapy Recommended 2-3 Months Frequency of Treatment Once a Week Length of Session 45 Minutes Therapeutic Contents Client Education,Cognitive- Linguistic Training,Home Exercise Program Provided Patient/Caregiver Instruction Home Exercise Program,Plan of Care,Questions/Concerns Therapy Recommendations Continue with Current Program
--- NOTE | 2022-03-16 14:42 | ST.OPDS ---
Visit Care Team Role Provider Type Yifan Knight Attending Provider Non-Staff Primary Care Provider Referring Provider Address: [address] [place] [address], [id number] SCARF GLUER Treatment Note SCARF GLUER Clinical Instructor Line Start: 03/30/21 12:26 Freq: Status: Active Protocol: Document 04/13/21 17:00 EUGENIA (Rec: 04/13/21 17:00 EUGENIA [email or web address]) Clinical Instructor Signature Clinical Instructor Clinical Instructor Yes SCARF GLUER Treatment Note Start: 03/17/21 12:51 Freq: Status: Active Protocol: Document 03/16/22 14:39 EUGENIA (Rec: 03/16/22 14:42 EUGENIA [id number]) Speech Pathology Treatment Note Setting Treatment Setting Outpatient Care Visit Type Note Type Discharge Summary General Information Patient History The pt is a 40-yr-old male familiar to this SCARF GLUER from previous outpatient speech therapy (07/30 - 03/30) targeting memory, attention, and problem solving skills. He made excellent progress using memory and organizational strategies to complete work and home responsibilities. 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 The pt presents with mild cognitive communication deficits primarily in areas of attention, executive function, and working/short-term memory which impact his ability to manage high level responsibilities in his job. Subjective Observations/Patient Presentation The pt was last seen in July 2021. He has not returned for continued treatment and is discharged from services. Chief Complaint(s) Language,Cognitive Rehab Expectation/Goals: Patient Goals Return memory to PLOF. Patient Knowledge/Awareness of SCARF GLUER Role Excellent in Treatment Assessment Patient Response to Treatment Excellent Plan Therapy Recommendations Discharge from Speech Therapy
== END 2022-03-23 13:46 ==
LOC: SP 14:30
DX: S06.9X0A Unspecified intracranial injury without loss of consciousness, initial encounter (principal)
CPT/HCPCS: 92507; 92523